=== PATIENT | male | born 1945 | race Caucasian/White ===

== ENCOUNTER 2016-11-23 16:05 | Emergency (ER) | payer MEDICARE ==
[2016-11-23] MEDS ORDERED: ALBUTEROL NEB 2.5 MG/3 ML INH STA (16:17)
[2016-11-23] MEDS ORDERED: ALBUTEROL NEB 2.5 MG/3 ML INH ONE (16:21)
== END 2016-11-23 17:42 | disposition home or self-care (01) ==
DX: J40 Bronchitis, not specified as acute or chronic (principal); J44.1 Chronic obstructive pulmonary disease with (acute) exacerbation; Z77.22 Contact with and (suspected) exposure to environmental tobacco smoke (acute) (chronic)
CPT/HCPCS: 71020; 94640; 99283; 99284; J7613

== ENCOUNTER 2016-12-19 09:56 | Outpatient (CLI) | payer MEDICARE | END 2016-12-19 09:57 | disposition home or self-care (01) | DX: Z20.828 Contact with and (suspected) exposure to other viral communicable diseases (principal) | CPT/HCPCS: 36415; 86694; 86695; 86696; G0475 ==